=== PATIENT | male | born 1995 | race African-American/Black ===

== ENCOUNTER 2020-09-12 19:34 | Emergency (ER) | payer SELFPAY ==
[~2020-09-12] VITALS: Ht 177.8 cm; Wt 68.0 kg
[2020-09-12 19:43] VITALS: BP 137/77
== END 2020-09-12 21:32 | disposition left against medical advice (07) ==
LOC: ER 19:34
DX: R68.89 Other general symptoms and signs (principal); Z53.21 Procedure and treatment not carried out due to patient leaving prior to being seen by health care provider